=== PATIENT | female | born 1975 | race Two or more races ===

== ENCOUNTER 2017-12-30 13:23 | Outpatient (CLI) | payer OTHER | END 2017-12-30 13:57 | disposition home or self-care (01) | LOC: SONOGRAMA 13:23 | DX: N83.201 Unspecified ovarian cyst, right side (principal) ==

== ENCOUNTER → 2018-01-15 | Emergency (ER) | payer OTHER ==
[~2018-01-15] VITALS: Ht 170.2 cm; Wt 99.8 kg
[~2018-01-15] MED LIST: CLONAZEPAM2 M1; EFFEXOR XR75 MG; NEURONTIN300 MG
== END | disposition home or self-care (01) ==
LOC: ER 06:18
DX: S80.02XA Contusion of left knee, initial encounter (principal); W22.8XXA Striking against or struck by other objects, initial encounter; Y93.89 Activity, other specified; Y92.098 Other place in other non-institutional residence as the place of occurrence of the external cause; Y99.8 Other external cause status

== ENCOUNTER 2018-01-22 09:14 | Outpatient (CLI) | payer OTHER | END 2018-01-22 09:57 | disposition home or self-care (01) | LOC: RAD 501 09:14 | DX: S80.02XA Contusion of left knee, initial encounter (principal) ==

== ENCOUNTER → 2018-02-26 10:26 | Outpatient (CLI) | payer OTHER | END | disposition home or self-care (01) | LOC: LAB 10:26 | DX: E21.2 Other hyperparathyroidism (principal); M81.8 Other osteoporosis without current pathological fracture; E56.1 Deficiency of vitamin K; E03.8 Other specified hypothyroidism; E88.89 Other specified metabolic disorders; E83.42 Hypomagnesemia ==

== ENCOUNTER 2019-02-19 17:11 | Emergency (ER) | payer OTHER ==
[~2019-02-19] VITALS: Ht 170.2 cm; Wt 93.9 kg
== END 2019-02-19 21:25 | disposition home or self-care (01) ==
LOC: ER 17:11
DX: R06.02 Shortness of breath (principal); K44.9 Diaphragmatic hernia without obstruction or gangrene

== ENCOUNTER → 2019-09-17 | Emergency (ER) | payer OTHER ==
[~2019-09-17] VITALS: Ht 167.6 cm; Wt 87.1 kg
== END | disposition home or self-care (01) ==
LOC: ER 12:44
DX: S61.220A Laceration with foreign body of right index finger without damage to nail, initial encounter (principal); W26.0XXA Contact with knife, initial encounter; Y93.89 Activity, other specified; Y92.89 Other specified places as the place of occurrence of the external cause; Y99.8 Other external cause status

== ENCOUNTER 2023-07-22 09:38 | Emergency (ER) | payer OTHER ==
[~2023-07-22] VITALS: Ht 170.2 cm; Wt 86.2 kg
== END 2023-07-22 12:28 | disposition home or self-care (01) ==
LOC: ER 09:38
DX: S93.504A Unspecified sprain of right lesser toe(s), initial encounter (principal); X58.XXXA Exposure to other specified factors, initial encounter; Y93.89 Activity, other specified; Y92.018 Other place in single-family (private) house as the place of occurrence of the external cause; Y99.9 Unspecified external cause status